=== PATIENT | male | born 1995 | race Caucasian/White ===

== ENCOUNTER 2019-10-11 15:32 | Emergency (ER) | payer SELFPAY ==
[2019-10-11 15:49] VITALS: BP 152/94; PULSE 76
--- NOTE | 2019-10-11 16:27 | CRLCR ---
Indication: Nail in finger. Technique: Three views of the left 2nd finger. Comparison: None Findings: A nail is identified extending to the level of the mid diaphysis of the middle phalanx. This appears to be just medial to the bone. No definite fracture is identified. Impression: Male identified within the soft tissues medial to the distal and middle phalanges. Dictated by Gisella Giraldo MD @ Oct 11 2019 4:24PM Signed by Dr. Gisella Giraldo @ Oct 11 2019 4:25PM
[2019-10-11] MEDS ORDERED: Acetaminophen/oxyCODONE 325-5 MG Tab PO ONE (16:34)
--- NOTE | 2019-10-11 16:41 | EDM.PDOC ---
ED HPI GENERAL MEDICAL PROBLEM - General Chief Complaint: Skin Complaint Stated Complaint: NAIL IN FINGER Time Seen by Provider: 10/11/19 16:39 Source of Information: Reports: Patient History Limitations: Reports: No Limitations - History of Present Illness INITIAL COMMENTS - FREE TEXT/NARRATIVE: pt put a ring shank nail into the rt index finger. The nail went into the tip and clear to the knuckle level He is current with his tetanus. Onset: Today, Sudden Duration: Hour(s): Location: Reports: Upper Extremity, Right Associated Symptoms: Reports: No Other Symptoms Left Finger-Index Pain Score (Numeric/FACES): 5 - Related Data Allergies Allergy/AdvReac Type Severity Reaction Status Date / Time Sulfa (Sulfonamide Allergy Hives Verified 10/11/19 15:55 Antibiotics) Home Meds: Home Meds NK [No Known Home Meds] 10/01/15 [History] Past Medical History - Past Health History Medical/Surgical History: Denies Medical/Surgical History Respiratory History: Reports: Other (See Below) Other Respiratory History: collapsed l lung - Infectious Disease History Infectious Disease History: Reports: Chicken Pox Social & Family History - Tobacco Use Smoking Status *Q: Never Smoker Second Hand Smoke Exposure: No - Caffeine Use Caffeine Use: Reports: Soda - Recreational Drug Use Recreational Drug Use: No ED ROS GENERAL - Review of Systems Review Of Systems: See Below Constitutional: Reports: No Symptoms HEENT: Reports: No Symptoms Respiratory: Reports: No Symptoms Cardiovascular: Reports: No Symptoms Endocrine: Reports: No Symptoms GI/Abdominal: Reports: No Symptoms : Reports: No Symptoms Musculoskeletal: Reports: Other ( nail in the rt index finger. ) ED EXAM, SKIN/RASH Exam: See Below Exam Limited By: No Limitations General Appearance: Alert, Anxious, Other (pt is uncomfortable with the nail in the rt index finger. ) Extremities: Other (pt has ringshank nail to the knuckle are from the tip of the finger. He was given percocet 5/[address] Flores was consulted and he will remove the nail. ) Course - Vital Signs Last Recorded V/S: Last Vital Signs Temp 36.1 C 10/11/19 16:01 Pulse 76 10/11/19 16:01 Resp 16 10/11/19 16:01 BP 152/94 H 10/11/19 16:01 Pulse Ox 96 10/11/19 16:01 - Orders/Labs/Meds Meds: Medications Discontinued Medications Generic Name Dose Route Start Last Admin Trade Name Freq PRN Reason Stop Dose Admin Oxycodone/Acetaminophen 1 tab 10/11/19 16:34 10/11/19 16:39 Percocet 325-5 Mg PO 10/11/19 16:35 1 tab ONETIME ONE Administration - Re-Assessments/Exams Free Text/Narrative Re-Assessment/Exam: 10/11/19 17:37 Dr Wynn did remove the nail. The xray did reveal that the nail did not go through the bone. Departure - Departure Time of Disposition: 17:26 Disposition: Home, Self-Care 01 Condition: Fair Clinical Impression: Foreign body finger - Discharge Information Instructions: Hand or Foot Foreign Body, Adult Referrals: PCP,None [Primary Care Provider] - Forms: ED Department Discharge Care Plan Goals: instructions from Dr Flores, keep appt with him the first of the week, keflex 500mg tid for 1 week, norco 5/325 q6h prn for pain Sepsis Event Note - Evaluation Sepsis Screening Result: No Definite Risk - Focused Exam Date Exam was Performed: 10/12/19 Time Exam was Performed: 08:55
== END 2019-10-11 17:54 | disposition home or self-care (01) ==
LOC: JP.ED 15:32
DX: S60.450A Superficial foreign body of right index finger, initial encounter (principal); Z88.2 Allergy status to sulfonamides; X58.XXXA Exposure to other specified factors, initial encounter
CPT/HCPCS: 73140; 99283; A9270